=== PATIENT | male | born 1960 | race Caucasian/White ===

== ENCOUNTER 2020-01-18 12:29 | Inpatient (IN) | payer OTHER ==
[2020-01-18 12:34] VITALS: BMI 26.6
--- NOTE | 2020-01-18 12:35 | PDOC ---
History of Present Illness - General Chief Complaint: Blood Pressure Problem Stated Complaint: vomiting,htn Time Seen by Provider: 01/18/20 12:32 Past History - Medical History Allergies/Adverse Reactions: Allergies Allergy/AdvReac Type Severity Reaction Status Date / Time No Known Allergies Allergy Verified 01/18/20 12:30 Home Medications: Ambulatory Orders NK [No Known Home Medication] 01/18/20 COPD: No Other medical history: pt denies - Psycho-Social/Smoking History Smoking History: Former smoker Have you smoked in the past 12 months: No If you are a former smoker, when did you quit?: 10 years Information on smoking cessation initiated: No - Substance Abuse Hx (Audit-C & DAST Scrn) How often the patient has a drink containing alcohol: 4 0r more times/wk Number of drinks the patient has on a typical day: 10 or more How often the patient has six or more drinks on one occasion: Daily or almost da kari Score: In Men: 4 or > Positive; In Women: 3 or > Positive: 12 Screen Result (Pos requires Nsg. Audit-10AR): Positive In the last yr the pt used illegal drug/Rx for NonMed reason: No Score: Yes response is considered Positive: 0 Screen Result (Positive result requires Nsg. DAST-10): Negative *Physical Exam - Vital Signs Last Vital Signs Temp Pulse Resp BP Pulse Ox 98.6 F 101 H 19 152/116 H 100 01/18/20 12:30 01/18/20 12:30 01/18/20 12:30 01/18/20 12:30 01/18/20 12:30 Discharge - Discharge Information Condition: Stable - Follow up/Referral - Patient Discharge Instructions - Post Discharge Activity
[2020-01-18] MEDS ORDERED: ONDANSETRON 4 MG/2 ML VIAL IVPUSH ONE ×2 (12:54→14:34)
[2020-01-18] MEDS ORDERED: FOLIC ACID INJECTION - 1 MG, THIAMINE HCL 100 MG, MULTIVIT INJECTION ADULT 10 ML in SOD... IVPB ONE ×2 (12:54→22:45)
[2020-01-18] MEDS ORDERED: chlordiazePOXIDE HCL 25 MG CAPSULE PO ONE (12:54)
[2020-01-18] MEDS ORDERED: FAMOTIDINE 20 MG/50 ML IVPB 20 MG/50 ML MG IVPB ONE (12:54)
[2020-01-18 13:32] LABS: ALBUMIN 4.6 g/dl (3.4-5.0); BASO % 0.8 % (0-2.0); BILIRUBIN,TOTAL 1.1 mg/dl (0.2-1); CALCIUM 9.8 mg/dl (8.5-10); CREATININE 0.9 mg/dl (0.55-1.3); EOS % 0.2 % (0-4.5); HEMATOCRIT 48.3 % (35.4-49); LYMPH % 14.7 % (8-40); MAGNESIUM 2.1 mg/dL (1.8-2.4); MCH 31.3 pg (25.7-33.7); MCHC 35.1 g/dl (32.0-35.9); MEAN CELL VOLUME 89.3 fl (80-96); NEUT % 78.3 % (42.8-82.8); PLATELET COUNT 323 K/MM3 (134-434); POTASSIUM 4.3 mmol/L (3.5-5.1); RBC 5.42 M/mm3 (4.00-5.60); RDW 13.3 % (11.9-15.9); TOT PROT 8.1 g/dl (6.4-8.2); WHITE BLOOD COUNT 7.6 K/mm3 (4.0-10.8)
[2020-01-18] MEDS ORDERED: METOCLOPRAMIDE HCL INJECTION 10 MG/2 ML VIAL IVPUSH ONE (13:57)
[2020-01-18] MEDS ORDERED: MAG HYDROX/AL HYDROX/SIMETH 30 ML UNIT-DOSE CUP PO ONE (13:58)
--- NOTE | 2020-01-18 14:02 | EKG ---
Test Reason : Blood Pressure : / mmHG Vent. Rate : 085 BPM Atrial Rate : 085 BPM P-R Int : 150 ms QRS Dur : 098 ms QT Int : 378 ms P-R-T Axes : 070 -52 040 degrees QTc Int : 449 ms NORMAL SINUS RHYTHM PULMONARY DISEASE PATTERN INCOMPLETE RIGHT BUNDLE BRANCH BLOCK LEFT ANTERIOR FASCICULAR BLOCK ABNORMAL ECG NO PREVIOUS ECGS AVAILABLE Confirmed by Teresa Benavides ([id number]) on 01/18/2020 2:02:11 PM Referred By: MD AGUIRRE Confirmed By:Teresa Benavides
--- NOTE | 2020-01-18 14:28 | PDOC ---
Documentation entered by Meagan Bowers SCRIBE, acting as scribe for Waleska Abebe DO. Waleska Abebe DO: This documentation has been prepared by the srinivasanibe, Meagan Bowers SCRIBE, under my direction and personally reviewed by me in its entirety. I confirm that the documentation accurately reflects all work, treatment, procedures, and medical decision making performed by me. History of Present Illness - General Chief Complaint: Blood Pressure Problem Stated Complaint: vomiting,htn Time Seen by Provider: 01/18/20 12:32 History Source: Patient Exam Limitations: No Limitations - History of Present Illness Initial Comments: 01/18/20 14:13 The patient is a 59-year-old male with a past medical history significant for alcohol abuse (drinks 12 packs of Heineken/day in addition to shots of alejandra joiner, the patient has quit 10 years ago and had been sober for 13 years, however, relapsed after his divorce) who was sent to the emergency department from Urgent Care for hypertension. The patient report following up at urgent care for episodes of nonbloody, nonbilious vomiting since last night, after drinking heavily this past weekend. At Urgent Care, the patient was noted to hypertensive and was sent to the ED for further evaluation. At the ED, the patient is noted to be tremulous and tachycardic. 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 History of alcohol abuse, quit 10 years ago and relapsed after his divorce. Past History - Medical History Allergies/Adverse Reactions: Allergies Allergy/AdvReac Type Severity Reaction Status Date / Time No Known Allergies Allergy Verified 01/18/20 12:30 Home Medications: Ambulatory Orders NK [No Known Home Medication] 01/18/20 COPD: No Other medical history: pt denies - Psycho-Social/Smoking History Smoking History: Former smoker Have you smoked in the past 12 months: No If you are a former smoker, when did you quit?: 10 years Information on smoking cessation initiated: No - Substance Abuse Hx (Audit-C & DAST Scrn) How often the patient has a drink containing alcohol: 4 0r more times/wk Number of drinks the patient has on a typical day: 10 or more How often the patient has six or more drinks on one occasion: Daily or almost daily Score: In Men: 4 or > Positive; In Women: 3 or > Positive: 12 Screen Result (Pos requires Nsg. Audit-10AR): Positive In the last yr the pt used illegal drug/Rx for NonMed reason: No Score: Yes response is considered Positive: 0 Screen Result (Positive result requires Nsg. DAST-10): Negative Review of Systems - Review of Systems Able to Perform ROS?: Yes Comments:: 01/18/20 14:16 GENERAL/CONSTITUTIONAL: No fever or chills. No weakness. HEAD, EYES, EARS, NOSE AND THROAT: No change in vision. No ear pain or discharge. No sore throat. CARDIOVASCULAR: No chest pain or shortness of breath. RESPIRATORY: No cough, wheezing, or hemoptysis. GASTROINTESTINAL: +Vomiting. No diarrhea or constipation. GENITOURINARY: No dysuria, frequency, or change in urination. MUSCULOSKELETAL: No joint or muscle swelling or pain. No neck or back pain. SKIN: No rash NEUROLOGIC: +tremulous. No headache, vertigo, loss of consciousness, or change in strength/sensation. ENDOCRINE: No increased thirst. No abnormal weight change. HEMATOLOGIC/LYMPHATIC: No anemia, easy bleeding, or history of blood clots. ALLERGIC/IMMUNOLOGIC: No hives or skin allergy. *Physical Exam - Vital Signs Last Vital Signs Temp Pulse Resp BP Pulse Ox 98.6 F 101 H 19 155/107 H 100 01/18/20 12:30 01/18/20 12:30 01/18/20 12:30 01/18/20 13:58 01/18/20 12:30 - Physical Exam 01/18/20 14:14 GENERAL: +patient is anxious, Awake, alert, and fully oriented, in no acute dist ress HEAD: No signs of trauma EYES: PERRLA, EOMI, sclera anicteric, conjunctiva clear ENT: +tongue fasciculation. Auricles normal inspection, hearing grossly normal, nares patent, oropharynx clear without exudates. Moist mucosa NECK: Normal ROM, supple, no lymphadenopathy, JVD, or masses LUNGS: Breath sounds equal, clear to auscultation bilaterally. No wheezes, and no crackles HEART: +tachycardia. Regular rate and rhythm, normal S1 and S2, no murmurs, rubs or gallops ABDOMEN: +belching and burping, no vomiting, soft, diffusely nontender, and nondistended. EXTREMITIES: No leg edema. Normal range of motion, no edema. NEUROLOGICAL: +tremulous, Cranial nerves II through XII grossly intact. Normal speech, normal gait SKIN: Warm, Dry, normal turgor, no rashes or lesions noted. Heart Score/ECG Review - ECG Intrepretation Comment:: 01/18/20 14:24 sinus at 85, L malik axis, incomplete RBBB, no acute st/t wave findings ED Treatment Course - LABORATORY CBC & Chemistry Diagram: 01/18/20 12:50 01/18/20 12:50 - ADDITIONAL ORDERS Additional order review: Laboratory Results 01/18/20 01/18/20 01/18/20 12:50 12:50 12:50 PTT (Actin FS) 26.7 Sodium 146 H Potassium 4.3 Chloride 105 Carbon Dioxide 26 Anion Gap 15 BUN 13.0 Creatinine 0.9 Est GFR (CKD-EPI)AfAm 107.97 Est GFR (CKD-EPI)NonAf 93.16 Random Glucose 120 H Calcium 9.8 Magnesium 2.1 Total Bilirubin 1.1 H AST 43 H ALT 28 Alkaline Phosphatase 73 Creatine Kinase 149 Troponin I < 0.03 Total Protein 8.1 Albumin 4.6 01/18/20 12:50 RBC 5.42 MCV 89.3 MCHC 35.1 RDW 13.3 MPV 7.0 L Neutrophils % 78.3 Lymphocytes % 14.7 Monocytes % 6.0 Eosinophils % 0.2 Basophils % 0.8 - Medications Given in the ED: ED Medications Discontinued Medications Generic Name Dose Route Start Last Admin Trade Name Freq PRN Reason Stop Dose Admin Chlordiazepoxide HCl 50 mg 01/18/20 12:54 01/18/20 13:54 Librium - PO 01/18/20 12:55 50 mg ONCE ONE Administration Famotidine/Sodium Chloride 20 mg in 50 mls @ 100 mls/hr 01/18/20 12:54 01/18/20 13:25 Pepcid 20 Mg Premixed Ivpb - IVPB 01/18/20 13:23 100 mls/hr ONCE ONE Administration Metoclopramide HCl 10 mg 01/18/20 13:57 01/18/20 14:02 Reglan Injection - IVPUSH 01/18/20 13:58 10 mg ONCE ONE Administration Ondansetron HCl 4 mg 01/18/20 12:54 01/18/20 13:11 Zofran Injection IVPUSH 01/18/20 12:55 4 mg ONCE ONE Administration Medical Decision Making - Medical Decision Making 01/18/20 14:25 A/P: 59yo male sent from Urgent Care for eval of n/v and elevated bp -pt arrives hypertensive, burping/belching, tachy, tremulous and in etoh withdrawal -no cp/sob -no abd pain -c/o nausea and vomiting nbnb -will send labs, ekg, cxr -will medicate for n/v and etoh withdrawal -discussed [facility]- pt considering detox -[facility]ed with [facility] Millan [facility] who states the case workers at [facility] could assist with medicaid coverage for the patient -pt states he needs to get some stuff done today before going to detox -discussed risks/benefits of detox and safely stopping etoh use, discussed DT and etoh withdrawal in detail -will medicate, will monitor and reassess 01/18/20 14:28 trop neg labs reviewed vomited up librium, will continue to medicate 01/18/20 14:35 pt vomiting up maalox, unable to tolerate po will obtain ct abd/pelvis, will re-medicate and monitor 01/18/20 14:47 01/18/20 15:54 pt has been unable to tolerate po - even sips of water now he states he ate steak last night and then n/v started overnight, states he feels the food/drink gets stuck - he now states, but states he was able to drink last night after eating the steak without immediately vomiting concern now for food bolus, though pt seems to tolerate his secretions -will give ativan iv and monitor call placed to GI service 01/18/20 16:[address] Fried, cannot perform egd at [facility] because pt does not have a neg covid swab and anesthesia will not perform here. call placed to GI at [facility]. case discussed with Dr. Dr. Stewart, unable to perform egd tonight. Case discussed with DR. Farley - will perform egd for poss food bolus at [facility] microblog sent to [facility] for admission case discussed with Dr. Chan who accepts pt to service 01/18/20 16:42 pt will be transferred to [facility] for admission/endo Discharge - Discharge Information Problems reviewed: Yes Clinical Impression/Diagnosis: Alcohol withdrawal, Food impaction of esophagus Condition: Fair - Admission Yes - Follow up/Referral - Patient Discharge Instructions - Post Discharge Activity
[2020-01-18] MEDS ORDERED: PANTOPRAZOLE SODIUM 40 MG VIAL IVPUSH ONE (14:33)
[2020-01-18] MEDS ORDERED: LORazepam 2 MG/ML SDV VIAL ONE (15:59)
[2020-01-18] MEDS ORDERED: GlUCAGON HUMAN RECOMBINANT 1 MG/VIAL IVPUSH ONE (16:27)
[2020-01-18] MEDS ORDERED: SODIUM CHLORIDE 0.9% 1000 ML INFUS.BAG IV ONE (16:27)
[2020-01-18] MEDS ORDERED: GLUCAGON 1 MG KIT ONE (16:44)
[2020-01-18 16:45] LABS: EPITHELIAL CELLS RARE /hpf; URINE MUCUS 1+
--- NOTE | 2020-01-18 20:58 | CON.GI ---
Consult Consult Specialty:: Gastroenterology Referred by:: Dr Abebe Reason for Consultation:: Dysphagia - History of Present Illness Chief Complaint: Feels like food is stuck in his esophagus History of Present Illness: 59M was drinking beer and Trip Joseph'd at a barbecue yesterday when he felt a steak get stuck in his lower chest. He has been unable to swallow liquids since this occurred at 6PM yesterday. He was initially evaluated today at 1PM at the [facility] but just arrived here for interventional endoscopy. He denies having a cough. - History Source History Provided By: Patient Limitations to Obtaining History: No Limitations - Past Medical History Gastrointestinal: Yes: GERD Renal/: Yes: Renal Calculi - Past Surgical History Past Surgical History: Yes: Hernia Repair (RIH and LIH age 11) - Alcohol/Substance Use Hx Alcohol Use: Yes (beer daily, hard liquor weekends) History of Substance Use: reports: Cocaine (quit 13 years ago) - Smoking History Smoking history: Former smoker Have you smoked in the past 12 months: No If you are a former smoker, when did you quit?: 10 years - Social History Usual Living Arrangement: Alone ADL: Independent Occupation: owns [employer] Place of : [facility] History of Recent Travel: No Home Medications - Allergies Allergies/Adverse Reactions: Allergies Allergy/AdvReac Type Severity Reaction Status Date / Time No Known Allergies Allergy Verified 01/18/20 12:30 - Home Medications Home Medications: Ambulatory Orders NK [No Known Home Medication] 01/18/20 Family Medical History Family Hx Cancer: Father ( 85 esophageal cancer) Family Hx Cardiac Disorders: Mother (RHD required cardiac valve surgery , age 75) Review of Systems - Review of Systems Constitutional: reports: No Symptoms Eyes: reports: No Symptoms HENT: reports: No Symptoms Neck: reports: No Symptoms Cardiovascular: reports: No Symptoms Respiratory: reports: No Symptoms Gastrointestinal: reports: Indigestion Genitourinary: reports: No Symptoms Breasts: reports: No Symptoms Reported Physical Exam-GI Vital Signs: Vital Signs Temperature 98.6 F 01/18/20 18:15 Pulse Rate 77 01/18/20 18:15 Respiratory Rate 16 01/18/20 18:15 Blood Pressure 155/98 01/18/20 18:15 O2 Sat by Pulse Oximetry (%) 97 01/18/20 18:15 CBC,CMP WBC 7.6 K/mm3 (4.0-10.8) 01/18/20 12:50 RBC 5.42 M/mm3 (4.00-5.60) 01/18/20 12:50 Hgb 17.0 GM/dl (11.7-16.9) H 01/18/20 12:50 Hct 48.3 % (35.4-49) 01/18/20 12:50 MCV 89.3 fl (80-96) 01/18/20 12:50 MCH 31.3 pg (25.7-33.7) 01/18/20 12:50 MCHC 35.1 g/dl (32.0-35.9) 01/18/20 12:50 RDW 13.3 % (11.9-15.9) 01/18/20 12:50 Plt Count 323 K/MM3 (134-434) 01/18/20 12:50 MPV 7.0 fl (7.5-11.1) L 01/18/20 12:50 Absolute Neuts (auto) 5.9 K/mm3 01/18/20 12:50 Neutrophils % 78.3 % (42.8-82.8) 01/18/20 12:50 Lymphocytes % 14.7 % (8-40) 01/18/20 12:50 Monocytes % 6.0 % (3.8-10.2) 01/18/20 12:50 Eosinophils % 0.2 % (0-4.5) 01/18/20 12:50 Basophils % 0.8 % (0-2.0) 01/18/20 12:50 Sodium 146 mmol/L (136-145) H 01/18/20 12:50 Potassium 4.3 mmol/L (3.5-5.1) 01/18/20 12:50 Chloride 105 mmol/L (98-107) 01/18/20 12:50 Carbon Dioxide 26 mmol/L (21-32) 01/18/20 12:50 Anion Gap 15 MMOL/L (8-16) 01/18/20 12:50 BUN 13.0 mg/dl (7-18) 01/18/20 12:50 Creatinine 0.9 mg/dl (0.55-1.3) 01/18/20 12:50 Est GFR (CKD-EPI)AfAm 107.97 01/18/20 12:50 Est GFR (CKD-EPI)NonAf 93.16 01/18/20 12:50 Random Glucose 120 mg/dl (74-106) H 01/18/20 12:50 Calcium 9.8 mg/dl (8.5-10) 01/18/20 12:50 Magnesium 2.1 mg/dL (1.8-2.4) 01/18/20 12:50 Total Bilirubin 1.1 mg/dl (0.2-1) H 01/18/20 12:50 AST 43 U/L (15-37) H 01/18/20 12:50 ALT 28 U/L (13-61) 01/18/20 12:50 Alkaline Phosphatase 73 U/L (45-117) 01/18/20 12:50 Creatine Kinase 149 U/L (26-308) 01/18/20 12:50 Troponin I < 0.03 ng/ml (0.00-0.05) 01/18/20 12:50 Total Protein 8.1 g/dl (6.4-8.2) 01/18/20 12:50 Albumin 4.6 g/dl (3.4-5.0) 01/18/20 12:50 Lipase 106 U/L (73-393) 01/18/20 12:50 Constitutional: Yes: Anxious Eyes: Yes: Conjunctiva Clear HENT: Yes: Atraumatic Neck: Yes: Trachea Midline Cardiovascular: Yes: Regular Rate and Rhythm Respiratory: Yes: CTA Bilaterally Gastrointestinal Inspection: Yes: Hernia (has reducible recurrent left inguinal hernia), Scars (RIH and LIH incision) ...Auscultate: Yes: Normoactive Bowel Sounds ...Palpate: Yes: Soft, Other (nontender) ...Rectal Exam: Yes: Guaiac Positive (1+ prostate) Edema: No Integumentary: Yes: Tattoos Neurological: Yes: Alert, Oriented Labs: CBC, BMP 01/18/20 12:50 01/18/20 12:50 Problem List - Problems (1) Alcoholism /alcohol abuse Code(s): F10.20 - ALCOHOL DEPENDENCE, UNCOMPLICATED (2) Nephrolithiasis Code(s): N20.0 - CALCULUS OF KIDNEY (3) Dysphagia Code(s): R13.10 - DYSPHAGIA, UNSPECIFIED (4) Family history of esophageal cancer Code(s): Z80.0 - FAMILY HISTORY OF MALIGNANT NEOPLASM OF DIGESTIVE ORGANS (5) Alcohol withdrawal Code(s): F10.239 - ALCOHOL DEPENDENCE WITH WITHDRAWAL, UNSPECIFIED (6) Food impaction of esophagus Code(s): T18.128A - FOOD IN ESOPHAGUS CAUSING OTHER INJURY, INITIAL ENCOUNTER Assessment/Plan Impression: - Meat impaction of the esophagus with dysphagia and inability to swallow anything. - Alcoholism - Occult GI bleeding likely due to alcoholic gastritis or perhaps portal gastropathy - FH of esophageal cancer Plan: - I have discussed emergent EGD with esophageal disempaction with Mr Tirado. I have informed him of the risks of esophageal perforation during such i ntervention that could lead to a like threatening situation and major chest surgery. I also explained that he may need prolonged intubation until he can undergo a rigid esophagoscopy by a surgeon to remove the impacted food. I also discussed this with his next of kin, his sister Angelica La in [place] on speaker phone with Roni. - He will need alcohol detox regimen - I discussed the need to completely abstain from alcohol in the future and the need for colonoscopy for colon cancer screening after discharge.
[2020-01-18] MEDS ORDERED: PNEUMOC 13-VAL CONJ-DIP CRM/PF 0.5 ML DISP.SYRIN IM ONE (21:25)
[2020-01-18] MEDS ORDERED: ONDANSETRON 4 MG/2 ML VIAL IVPUSH PRN (21:25)
[2020-01-18] MEDS ORDERED: PROPOFOL 20 ML ONE ×2 (21:31→21:33)
[2020-01-18] MEDS ORDERED: SUCCINYLCHOLINE CHLORIDE 200 MG/10 ML SYRINGE ONE (21:34)
--- NOTE | 2020-01-18 21:46 | PN ---
Teaching Attending Note Name of Resident: Helga Paiz ATTENDING PHYSICIAN STATEMENT I saw and evaluated the patient. I reviewed the resident's note and discussed the case with the resident. I agree with the resident's findings and plan as documented. SUBJECTIVE: Patient is a 59 year old man with a PMH of Kidney stone, Inguinal hernia and Alcohol abuse (drinks 12 packs of Heineken/day in addition to shots of Trip Oglesby) who was sent to the ER at [facility] from Urgent Care for hypertension. The patient report following up at Urgent Care for episodes of nonbloody, nonbilious vomiting since last night, after drinking heavily this past weekend. At Urgent Care, the patient was noted to hypertensive and was sent to the ER for further evaluation. At [facility] ER, the patient was noted to be tremulous and tachycardic and was treated for alcohol withdrawal. He states that at a barbecue yesterday he felt a steak get stuck in his lower chest. He has been unable to swallow liquids since this occurred at 6 pm yesterday. He was then transferred to [facility] for interventional endoscopy. Denies tobacco or illicit drug use. No sick contacts or recent travels. Patient has a family history of DM and esophageal cancer in father who at age 85 years and rheumatic heart disease in mother who required cardiac valve surgery and at age 75 years. OBJECTIVE: Alert Vital Signs Period Temp Pulse Resp BP Sys/Saini Pulse Ox Last 24 Hr 98.6 F-99 F 77-101 16-19 152-164/98-116 97-100 HEENT: No Jaundice, eye redness or discharge, PERRLA, EOMI. Normocephalic, atraumatic. External ears are normal and hearing is grossly intact. No nasal discharge. Neck: Supple, nontender. No palpable adenopathy or thyromegaly. No JVD Chest: Good effort. Clear to auscultation and percussion. Heart: Regular. No S3, rub or murmur Abdomen: Not distended, soft, nontender and no HSM. No rebound or guarding. Normal bowel sounds. Ext: Peripheral pulses intact. No leg edema. Skin: Warm and dry. No petechiae, rash or ecchymosis. Neuro: Alert. Oriented x3. CN 2-12 grossly intact. Sensation grossly intact in all four extremities and DTR are symmetric. Psych: Appropriate mood and affect. Good insight. Current Medications Generic Name Dose Route Start Last Admin Trade Name Freq PRN Reason Stop Dose Admin Fentanyl 50 mcg 01/18/20 21:25 Sublimaze Injection - IVPUSH [id number] PRN PAIN-PACU ORDER X 4 DOSES ONLY Ondansetron HCl 4 mg 01/18/20 21:25 Zofran Injection IVPUSH Q6H PRN NAUSEA AND/OR VOMITING Pneumococcal 13-Valent Conj Vacc 0.5 ml 01/18/20 21:25 Prevnar 13 Syringe - IM 01/18/20 21:26 .ONCE ONE Home Medications Medication Instructions Recorded NK [No Known Home Medication] 01/18/20 Abnormal Lab Results 01/18/20 01/18/20 01/18/20 12:50 12:50 15:30 Hgb 17.0 H MPV 7.0 L Sodium 146 H Random Glucose 120 H Total Bilirubin 1.1 H AST 43 H Urine Protein 1+ H Urine Ketones 2+ H Urine Bilirubin 1+ H ASSESSMENT AND PLAN: 1. Alcohol withdrawal syndrome/Esophageal food impaction - Being monitored on telemetry. Will implement [employer] librium alcohol withdrawal protocol and do neurochecks. Implement seizure, fall and aspiration precautions. Treat with IV Banana bag, thiamine and folic acid. Monitor and replete electrolytes (Ca,Mg,K,P). Counseled patient about abstaining from alcohol. Will consult soil fertility extension specialist and refer to alcohol detox upon discharge. No acute abnormality on CXR. CT abdomen/pelvis without contrast showed "Left Bochdalek hernia, fatty infiltration of liver, left inguinal hernia, and diverticulosis coli without diverticulitis". He is being evaluated by GI for EGD. ER staff at [facility] treated him with IV Glucagon. EKG shows NSR at 85/minute and prolonged QTc 499, LAFB, IRBBB with no significant ST-T wave changes. Initial troponin is negative. Will avoid drugs that may prolong QTc, keep him NPO, give IV protonix, check HbA1c, monitor BP closely and get urine protein/creatinine ratio. Viral testing for COVID-19 ordered and patient placed on airborne, droplet and contact isolation. 2. DVT prophylaxis - SCD 3. Advance directives - Full code
[2020-01-18] MEDS ORDERED: DEXTROSE 5%-NORMAL SALINE 1,000 ML IV SCH (22:45)
[2020-01-18] MEDS ORDERED: chlordiazePOXIDE HCL 25 MG CAPSULE PO PRN (22:47)
--- NOTE | 2020-01-18 23:02 | HP ---
CHIEF COMPLAINT: Dysphagia PCP: None HISTORY OF PRESENT ILLNESS: 59 y.o. M PMHx pof inguinal hernia and alcohol abuse presented to [facility] after being sent by urgent care for HTN, tachycardia and tremulous appearance. Patient stated he had been drinking alcohol at a barbeque yesterday when he began to have a sensation of food stuck in his throat. He began to have multiple episodes of nonbloody nonbilious emesis that he described as a "white mucus". Patient admits to having been a large partyer in his younger days having used a variety of drugs and alcohol but had been sober for 10 years until he relapsed after his divorce. Patient admits to having mild anxiety & tremors. Currently he has been drinking a 12 pack a day along with some liquor. 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 ER course was notable for: (1) Glucagon (2) Zofran (3) CT Abdomen w/o contrast Recent Travel: None PAST MEDICAL HISTORY: None PAST SURGICAL HISTORY: Hernia repir 10 y.o. Social History: Smoking: None Alcohol: 12 pack daily Drugs: None Allergies: shellfish - facial swelling HOME MEDICATIONS: None Home Medications Medication Instructions Recorded NK [No Known Home Medication] 01/18/20 REVIEW OF SYSTEMS CONSTITUTIONAL: Absent: fever, chills, diaphoresis, generalized weakness, malaise, loss of appetite, weight change HEENT: Difficulty swallowing Absent: rhinorrhea, nasal congestion, throat pain, throat swelling, mouth swelling, ear pain, eye pain, visual changes CARDIOVASCULAR: Absent: chest pain, syncope, palpitations, irregular heart rate, lightheadedness, peripheral edema RESPIRATORY: Absent: cough, shortness of breath, dyspnea with exertion, orthopnea, wheezing, stridor, hemoptysis GASTROINTESTINAL: Absent: abdominal pain, abdominal distension, nausea, vomiting, diarrhea, constipation, melena, hematochezia GENITOURINARY: Absent: dysuria, frequency, urgency, hesitancy, hematuria, flank pain, genital pain MUSCULOSKELETAL: Absent: myalgia, arthralgia, joint swelling, back pain, neck pain SKIN: Absent: rash, itching, pallor HEMATOLOGIC/IMMUNOLOGIC: Absent: easy bleeding, easy bruising, lymphadenopathy, frequent infections ENDOCRINE: Absent: unexplained weight gain, unexplained weight loss, heat intolerance, cold intolerance NEUROLOGIC: Absent: headache, focal weakness or paresthesias, dizziness, unsteady gait, seizure, mental status changes, bladder or bowel incontinence PSYCHIATRIC: Anxiety Absent: depression, suicidal or homicidal ideation, hallucinations. PHYSICAL EXAMINATION Vital Signs - 24 hr 01/18/20 01/18/20 01/18/20 12:30 13:58 18:15 Temperature 98.6 F 98.6 F Pulse Rate 101 H Pulse Rate [ 77 Apical] Respiratory 19 16 Rate Blood Pressure 152/116 H Blood Pressure 155/107 H 155/98 [Left Arm] O2 Sat by Pulse 100 97 Oximetry (%) 01/18/20 21:06 Temperature 99 F Pulse Rate 91 H Pulse Rate [ Apical] Respiratory 18 Rate Blood Pressure 164/100 Blood Pressure [Left Arm] O2 Sat by Pulse Oximetry (%) GENERAL: Awake, alert, and fully oriented, in no acute distress. HEAD: Normal with no signs of trauma. EYES: Pupils equal, round and reactive to light, extraocular movements intact, sclera anicteric, conjunctiva clear. EARS, NOSE, THROAT: Ears normal, nares patent, oropharynx clear without exudates. Moist mucous membranes. NECK: No JVD, or masses. LUNGS: Breath sounds equal, clear to auscultation bilaterally. No wheezes, and no crackles. No accessory muscle use. HEART: Regular rate and rhythm, normal S1 and S2 without murmur, rub or gallop. ABDOMEN: Soft, nontender, not distended, normoactive bowel sounds, no guarding, no rebound, no masses. MUSCULOSKELETAL: Normal range of motion at all joints. UPPER EXTREMITIES: 2+ pulses, warm, well-perfused. LOWER EXTREMITIES: 2+ pulses, warm, well-perfused. No calf tenderness. NEUROLOGICAL: Cranial nerves II-XII intact. Normal speech. PSYCHIATRIC: Cooperative. Good eye contact. Appropriate mood and affect. SKIN: Warm, dry, normal turgor, no rashes or lesions noted Laboratory Results - last 24 hr 01/18/20 01/18/20 01/18/20 12:50 12:50 12:50 WBC 7.6 RBC 5.42 Hgb 17.0 H Hct 48.3 MCV 89.3 MCH 31.3 MCHC 35.1 RDW 13.3 Plt Count 323 MPV 7.0 L Absolute Neuts (auto) 5.9 Neutrophils % 78.3 Lymphocytes % 14.7 Monocytes % 6.0 Eosinophils % 0.2 Basophils % 0.8 PTT (Actin FS) 26.7 Sodium 146 H Potassium 4.3 Chloride 105 Carbon Dioxide 26 Anion Gap 15 BUN 13.0 Creatinine 0.9 Est GFR (CKD-EPI)AfAm 107.97 Est GFR (CKD-EPI)NonAf 93.16 Random Glucose 120 H Calcium 9.8 Magnesium 2.1 Total Bilirubin 1.1 H AST 43 H ALT 28 Alkaline Phosphatase 73 Creatine Kinase 149 Troponin I Total Protein 8.1 Albumin 4.6 Lipase 106 Urine Color Urine Appearance Urine pH Urine Protein Urine Glucose (UA) Urine Ketones Urine Blood Urine Nitrite Urine Bilirubin Urine Urobilinogen Ur Leukocyte Esterase Urine RBC Urine WBC Ur Transition Epith Cell Urine Mucus Blood Type Antibody Screen 01/18/20 01/18/20 01/18/20 12:50 15:30 21:17 WBC RBC Hgb Hct MCV MCH MCHC RDW Plt Count MPV Absolute Neuts (auto) Neutrophils % Lymphocytes % Monocytes % Eosinophils % Basophils % PTT (Actin FS) Sodium Potassium Chloride Carbon Dioxide Anion Gap BUN Creatinine Est GFR (CKD-EPI)AfAm Est GFR (CKD-EPI)NonAf Random Glucose Calcium Magnesium Total Bilirubin AST ALT Alkaline Phosphatase Creatine Kinase Troponin I < 0.03 Total Protein Albumin Lipase Urine Color Yellow Urine Appearance Clear Urine pH 5.5 Urine Protein 1+ H Urine Glucose (UA) Negative Urine Ketones 2+ H Urine Blood Negative Urine Nitrite Negative Urine Bilirubin 1+ H Urine Urobilinogen 0.2 Ur Leukocyte Esterase Negative Urine RBC 0-2 Urine WBC Rare Ur Transition Epith Cell Rare Urine Mucus 1+ Blood Type O POSITIVE Antibody Screen Negative Imaging: CT Abdomen w/o contrast: "L bochdalek hernia, L inguinal hernia, Diverticulosis coli in the descending and sigmoid colon w/o evidince of acute diverticulitis" EGD: "A meat bezoar was found in the distal esophagus above the GE junction" " ASSESSMENT/PLAN: 59 y.o. M PMHx of inguinal hernia and alcohol abuse present to [facility] after being sent by urgent care due to dysphagia and elevated BP. # Dysphagia - Secondary to food impaction - NPO - Zofran QTc 449 - NPO - GI consult (Dr. Farley), recommend morning esophogram - Endoscopy scheduled # Alcohol Withdrawal - CIWA 4 will continue with checks - Banana bag - Librium protocol - Fall precautions - Seizure risk # Proteinuria - UA shows 1+ protein, 2+ ketones, 1+ bilirubin - Repeat UA - A1C - Urine Protein:Cr ratio #Covid - Covid PCR due to geographic location of pandemic - Covid PCR pending - Isolation precautions FEN - NPO - NS/D5W @ 100mL/hr DVT Prophylaxis - Hold medical AC due to endoscopy - Mechanical SCD'S placed Visit type - Emergency Visit Emergency Visit: Yes ED Registration Date: 01/18/20 Care time: The patient presented to the Emergency Department on the above date and was hospitalized for further evaluation of their emergent condition. - New Patient This patient is new to me today: Yes Date on this admission: 01/18/20 - Critical Care Critical Care patient: No ATTENDING PHYSICIAN STATEMENT I saw and evaluated the patient. I reviewed the resident's note and discussed the case with the resident. I agree with the resident's findings and plan as documented. SUBJECTIVE: OBJECTIVE: ASSESSMENT AND PLAN:
--- NOTE | 2020-01-18 23:21 | PN ---
Progress Note (short form) - Note Progress Note: GI Procedure NOte: Please see EGd report. A large piece of meat was removed from the esophagus which otherwise appeared normal. Clear liquids . For esophagram in AM Problem List - Problems (1) Alcoholism /alcohol abuse Code(s): F10.20 - ALCOHOL DEPENDENCE, UNCOMPLICATED (2) Nephrolithiasis Code(s): N20.0 - CALCULUS OF KIDNEY (3) Dysphagia Code(s): R13.10 - DYSPHAGIA, UNSPECIFIED (4) Family history of esophageal cancer Code(s): Z80.0 - FAMILY HISTORY OF MALIGNANT NEOPLASM OF DIGESTIVE ORGANS (5) Alcohol withdrawal Code(s): F10.239 - ALCOHOL DEPENDENCE WITH WITHDRAWAL, UNSPECIFIED (6) Food impaction of esophagus Code(s): T18.128A - FOOD IN ESOPHAGUS CAUSING OTHER INJURY, INITIAL ENCOUNTER
[2020-01-18] MEDS ORDERED: MAG HYDROX/AL HYDROX/SIMETH 30 ML UNIT-DOSE CUP PO PRN (23:23)
[2020-01-19] MEDS: chlordiazePOXIDE HCL 25 MG CAPSULE PO SCH ×4 (00:23→17:36)
[2020-01-19] MEDS ORDERED: MELATONIN 5 MG TABLETS PO ONE (01:21)
[2020-01-19 06:47] LABS: INR 1.16 (0.83-1.09); PROTHROMBIN TIME (PATIENT) 13.7 SEC (9.7-13.0)
[2020-01-19 06:50] LABS: ACTIVATED PTT 27.2 SECONDS (25.2-36.5)
[2020-01-19 06:55] LABS: HEMATOCRIT 39.8 % (35.4-49); HEMOGLOBIN 13.4 GM/dL (11.7-16.9); MCHC 33.6 g/dl (32.0-35.9); PLATELET COUNT 203 K/MM3 (134-434); RBC 4.33 M/mm3 (4.00-5.60); RDW 14.2 % (11.9-15.9); WHITE BLOOD COUNT 6.9 K/mm3 (4.0-10.0)
[2020-01-19 07:07] LABS: ALBUMIN 2.8 g/dl (3.4-5.0); BLOOD UREA NITROGEN 10.7 mg/dL (7-18); CALCIUM 7.9 mg/dL (8.5-10.1); CREATININE 0.7 mg/dL (0.55-1.3); MAGNESIUM 2.1 mg/dL (1.8-2.4); PHOSPHOROUS 2.6 mg/dL (2.5-4.9); POTASSIUM 3.3 mmol/L (3.5-5.1)
[2020-01-19 07:26] LABS: TOT PROT 5.6 g/dl (6.4-8.2)
[2020-01-19] MEDS ORDERED: THIAMINE HCL 200 MG/2 ML VIAL IVPB ONE (08:45)
[2020-01-19] MEDS ORDERED: THIAMINE HCL 100 MG TABLET (FP) PO SCH (10:00)
[2020-01-19] MEDS ORDERED: MULTIVITAMINS (DAILY MVI) TABLET (FP) PO SCH (10:00)
[2020-01-19] MEDS ORDERED: FOLIC ACID 1 MG TABLET (FP) PO SCH (10:00)
[2020-01-19] MEDS ORDERED: PANTOPRAZOLE 40 MG TABLET PO SCH (10:00)
--- NOTE | 2020-01-19 12:04 | EKG ---
Test Reason : Blood Pressure : / mmHG Vent. Rate : 083 BPM Atrial Rate : 083 BPM P-R Int : 148 ms QRS Dur : 094 ms QT Int : 382 ms P-R-T Axes : 051 -41 006 degrees QTc Int : 448 ms POOR DATA QUALITY, INTERPRETATION MAY BE ADVERSELY AFFECTED NORMAL SINUS RHYTHM LEFT AXIS DEVIATION INCOMPLETE RIGHT BUNDLE BRANCH BLOCK ABNORMAL ECG WHEN COMPARED WITH ECG OF 18-JAN-2020 13:10, NO SIGNIFICANT CHANGE WAS FOUND Confirmed by MD Goodson Daniel ([id number]) on 01/19/2020 12:04:28 PM Referred By: Confirmed By:Jake Goodson MD
--- NOTE | 2020-01-19 14:07 | PN ---
Teaching Attending Note Name of Resident: Carlos Grimes ATTENDING PHYSICIAN STATEMENT I saw and evaluated the patient. I reviewed the resident's note and discussed the case with the resident. I agree with the resident's findings and plan as documented. SUBJECTIVE: No fever or chills. No ADAME , no pain. No N.V, no abd pain. feels much better. admits to drinking a lot lately but is willing to quit. OBJECTIVE: NAD , awake, alert, cooperative Cv: RRR, no MRG Lungs: CTAB Abd: soft, NT, ND, obese, liver is not palpable or percussible . Spleen is not palpable but could be percussedover last 2 intercostal spaces. Ext: No edema , no tremor in upper or lower extremities ASSESSMENT AND PLAN: 59 y/o man with h/o ETOH abuse, nephrolothiasis , and hernia who presented with N/V and was found to have esophageal food impaction 1- Esophageal food impaction: s/p EGD with removal of large piece of meat. - follow up esophageogram read - no GI sx at this point - further f/u with GI as out pt after dc 2- ETOH use, no signs of withdrawal . - cont detox with libirum - No signs of Wernicke's - did not receive IV thiamine , will give one dose - cont po thiamine and folate 3- EKG reviewed. QTC 449. monitor patient and replete electrolytes and avoid pro longing agents dispo : pending esophageogram, transfer to [facility] if accepted and if patient agrees. He will think about stayign VS AMA . explained that librium has to be complete to avoid seizures, falls, and even . he verbalized to understand.
[2020-01-19 14:51] VITALS: BP 142/74; PULSE 67; TEMP 98.2
--- NOTE | 2020-01-19 15:43 | DS ---
Physical Exam: SUBJECTIVE: Patient seen and examined in his room. He was fully dressed with bags ready to leave. Patient insisted he's feeling fine, does not want detox treatment and no longer wants to be in the hospital so he is leaving AMA. OBJECTIVE: Vital Signs Vital Signs - 8 hr 01/19/20 01/19/20 08:46 14:10 Temperature 98.1 F 98.2 F Pulse Rate 55 L 67 Respiratory 18 18 Rate Blood Pressure 129/79 142/74 O2 Sat by Pulse 98 Oximetry (%) PHYSICAL EXAM General: awake, alert and oriented in no acute distress CV: RRR Lungs: CTA BL Abdomen: soft, nontender, mildly distended, hepatomegaly not appreciated on palpation, splenomegaly observed with dullness to percussion along left side 2nd & 3rd intercostal spaces Extremities: warm, well perfused, no edema LABS Laboratory Results - last 24 hr 01/18/20 01/18/20 01/19/20 15:30 21:17 06:12 WBC 6.9 RBC 4.33 Hgb 13.4 Hct 39.8 MCV 92.0 MCH 31.0 MCHC 33.6 RDW 14.2 Plt Count 203 MPV 7.0 L PT with INR INR PTT (Actin FS) Sodium Potassium Chloride Carbon Dioxide Anion Gap BUN Creatinine Est GFR (CKD-EPI)AfAm Est GFR (CKD-EPI)NonAf Random Glucose Hemoglobin A1c % Calcium Phosphorus Magnesium Iron TIBC Iron Saturation Unsaturated IBC Ferritin Total Bilirubin AST ALT Alkaline Phosphatase Total Protein Albumin Urine Color Yellow Urine Appearance Clear Urine pH 5.5 Urine Protein 1+ H Urine Glucose (UA) Negative Urine Ketones 2+ H Urine Blood Negative Urine Nitrite Negative Urine Bilirubin 1+ H Urine Urobilinogen 0.2 Ur Leukocyte Esterase Negative Urine RBC 0-2 Urine WBC Rare Ur Transition Epith Cell Rare Urine Mucus 1+ Blood Type O POSITIVE Antibody Screen Negative 01/19/20 01/19/20 01/19/20 06:12 06:12 06:12 WBC RBC Hgb Hct MCV MCH MCHC RDW Plt Count MPV PT with INR 13.70 H INR 1.16 H PTT (Actin FS) 27.2 Sodium 143 Potassium 3.3 L Chloride 110 H Carbon Dioxide 28 Anion Gap 5 L BUN 10.7 Creatinine 0.7 Est GFR (CKD-EPI)AfAm 119.72 Est GFR (CKD-EPI)NonAf 103.30 Random Glucose 114 H Hemoglobin A1c % 5.0 Calcium 7.9 L Phosphorus 2.6 Magnesium 2.1 Iron TIBC Iron Saturation Unsaturated IBC Ferritin Total Bilirubin 1.0 AST 27 ALT 22 Alkaline Phosphatase 59 Total Protein 5.6 L Albumin 2.8 L Urine Color Urine Appearance Urine pH Urine Protein Urine Glucose (UA) Urine Ketones Urine Blood Urine Nitrite Urine Bilirubin Urine Urobilinogen Ur Leukocyte Esterase Urine RBC Urine WBC Ur Transition Epith Cell Urine Mucus Blood Type Antibody Screen 01/19/20 06:12 WBC RBC Hgb Hct MCV MCH MCHC RDW Plt Count MPV PT with INR INR PTT (Actin FS) Sodium Potassium Chloride Carbon Dioxide Anion Gap BUN Creatinine Est GFR (CKD-EPI)AfAm Est GFR (CKD-EPI)NonAf Random Glucose Hemoglobin A1c % Calcium Phosphorus Magnesium Iron 225 H TIBC 257 Iron Saturation 87 H Unsaturated IBC 32 L Ferritin 118.3 Total Bilirubin AST ALT Alkaline Phosphatase Total Protein Albumin Urine Color Urine Appearance Urine pH Urine Protein Urine Glucose (UA) Urine Ketones Urine Blood Urine Nitrite Urine Bilirubin Urine Urobilinogen Ur Leukocyte Esterase Urine RBC Urine WBC Ur Transition Epith Cell Urine Mucus Blood Type Antibody Screen CT Abdomen w/o contrast: "L bochdalek hernia, L inguinal hernia, Diverticulosis coli in the descending and sigmoid colon w/o evidince of acute diverticulitis" EGD: "A meat bezoar was found in the distal esophagus above the GE junction" Abdomenal US : Hepatosplenomeagaly on US. Esophogram: normal esophagus with no evidence of schatizki's ring, hiatel hernia or further esophageal obstruction. HOSPITAL COURSE: Patient presented to the hospital from urgent care because urgent care found he was ill appearing, HTN, and tachycardic. Patient felt sensation of food caught in his throat. He had also been drinking and admits to drinking about 12 beers daily over last few months after having been sober for 10+ years. Patient had an EGD where a mass of meat was found and removed from the GE junction. Patient was also placed on Librium protocol overnight. The next morning he had an abdominal US that showed hepatosplenomegaly and diffuse fatty infiltrates of the liver. He also underwent an esophogram that showed normal esophagus with no evidence of schatizki's ring, hiatel hernia or further esophageal obstruction. Patient did not want to stay in hospital to finish librium alcohol detox. Despite warning him about the risk of withdrawel complications including seizures and possibili ty of respiratory arrest, injury, and due to seizures he still decided to leave. Patient was still urged to follow up with his PCP or call [facility] if he was in need of a PCP. The patient was also told to please seek further work up with GI if he ever experiences dysphasia again, as a biopsy of his esophagus may be necessary. Date of Discharge: 01/19/20 Minutes to complete discharge: 30 Discharge Summary Problems reviewed: Yes Reason For Visit: MEAT IMPACTION OF THE ESOPHAGUS Condition: Fair - Instructions Disposition: HOME - Home Medications Comprehensive Discharge Medication List: Ambulatory Orders NK [No Known Home Medication] 01/18/20 This patient is new to me today: Yes Date on this admission: 01/20/20 Emergency Visit: Yes ED Registration Date: 01/18/20 Care time: The patient presented to the Emergency Department on the above date and was hospitalized for further evaluation of their emergent condition. Critical Care patient: No - Discharge Referral Referred to [facility] Med P.C.: No ATTENDING PHYSICIAN STATEMENT I saw and evaluated the patient. I reviewed the resident's note and discussed the case with the resident. I agree with the resident's findings and plan as documented. SUBJECTIVE: OBJECTIVE: ASSESSMENT AND PLAN:
[2020-01-20] MEDS ORDERED: chlordiazePOXIDE HCL 25 MG CAPSULE PO SCH (05:00)
[2020-01-20] MEDS ORDERED: THIAMINE HCL 100 MG TABLET (FP) PO SCH (10:00)
[2020-01-20 21:07] LABS: HEP B CORE AB, TOT Negative (Negative)
[2020-01-21] MEDS ORDERED: chlordiazePOXIDE HCL 10 MG CAPSULE PO PRN
[2020-01-21] MEDS ORDERED: chlordiazePOXIDE HCL 10 MG CAPSULE PO SCH (05:00)
[2020-01-22] MEDS ORDERED: chlordiazePOXIDE HCL 10 MG CAPSULE PO SCH (05:00)
[2020-01-23] MEDS ORDERED: chlordiazePOXIDE HCL 10 MG CAPSULE PO ONE (05:00)
== END 2020-01-19 17:09 | disposition home or self-care (01) | DRG 254 ==
LOC: FER 12:29 → J4W 21:06
PROVIDERS: ADMIT Internal Medicine; ATTEND Internal Medicine
PROC: 0DC58ZZ Extirpation of Matter from Esophagus, Via Natural or Artificial Opening Endoscopic (ICD-10-PCS; principal; 2020-01-18 21:30)
DX: T18.128A Food in esophagus causing other injury, initial encounter (principal); X58.XXXA Exposure to other specified factors, initial encounter; Y93.9 Activity, unspecified; Y92.89 Other specified places as the place of occurrence of the external cause; Y99.9 Unspecified external cause status; R00.0 Tachycardia, unspecified; R13.10 Dysphagia, unspecified; F10.239 Alcohol dependence with withdrawal, unspecified; K40.90 Unilateral inguinal hernia, without obstruction or gangrene, not specified as recurrent; K29.21 Alcoholic gastritis with bleeding; R16.2 Hepatomegaly with splenomegaly, not elsewhere classified; K76.0 Fatty (change of) liver, not elsewhere classified; N20.0 Calculus of kidney; K21.9 Gastro-esophageal reflux disease without esophagitis
CPT/HCPCS: 36415; 71045-TC-FY; 74176-TC; 74220-TC-FY; 74240-TC-FY; 76700-TC; 80053; 81003; 81015; 82550; 82728; 83036; 83540; 83550; 83690; 83735; 84100; 84484; 85025; 85027; 85610; 85730; 86704; 86706; 86707; 86708; 86709; 86803; 86850; 86900; 86901; 87340; 93005; 93010; 94760; 97116-GP; 97161-GP; 99285-25; U0003